=== PATIENT | male | born 1960 | race African-American/Black ===

== ENCOUNTER 2018-04-08 14:03 | Outpatient (CLI) | payer BC ==
--- NOTE | 2018-04-08 17:18 | Diagnostic Imaging Report ---
Indication:Abdominal pain Technique: Grayscale and duplex Doppler imaging of the abdomen performed. Comparison: None Findings: The liver, demonstrated part of the pancreas, gallbladder, aorta and IVC, spleen appear unremarkable. There are calcifications suspected within both kidneys. They may be nonobstructive stones. There is a left renal cyst measuring 1 cm. CBD is 5.5 mm. There is no biliary ductal dilatation identified. Doppler evaluation of the main portal vein shows patency. There is no ascites. No hydronephrosis seen. Impression: Possible nonobstructive stones in the kidneys. Left renal cyst
== END 2018-04-08 16:03 | disposition home or self-care (01) ==
LOC: ULS 14:03
DX: R10.11 Right upper quadrant pain (principal); N28.1 Cyst of kidney, acquired
CPT/HCPCS: 76700

== ENCOUNTER 2019-06-28 13:06 | Outpatient (CLI) | payer BC ==
--- NOTE | 2019-06-28 14:46 | Diagnostic Imaging Report ---
Indication: Pain, hematuria, abnormal renal function tests Technique: Grayscale and duplex images of the kidneys, retroperitoneum, and bladder were obtained. Comparison: none Findings: Right kidney measures 10.1 cm in length. Left kidney measures 10.2 cm in length. Both kidneys demonstrate normal echogenicity. No hydronephrosis. There is a tiny left renal parapelvic cyst. Normal inferior vena cava. Bladder is normal. Both ureteral jets are demonstrated Impression: Essentially unremarkable exam Incidental finding of tiny left renal parapelvic cyst.
== END 2019-06-28 15:06 | disposition home or self-care (01) ==
LOC: ULS 13:06
DX: R31.9 Hematuria, unspecified (principal); N28.1 Cyst of kidney, acquired; R94.4 Abnormal results of kidney function studies
CPT/HCPCS: 76770